=== PATIENT | male | born 1960 | race Caucasian/White ===

== ENCOUNTER 2019-04-29 20:00 | Inpatient (IN) | payer BC ==
[~2019-04-29] VITALS: Ht 175.3 cm; Wt 127.0 kg
[2019-04-29 20:10] VITALS: BP_SYST 169
--- NOTE | 2019-04-29 20:15 | NUR ---
Patient triaged and placed in waiting room. VSS and patient appears in no acute distress at this time. Accompanied by self, awaiting available bed, and MD notified of need for MSE.
--- NOTE | 2019-04-29 20:44 | NUR ---
Patient to ER bed 03 to gown for evaluation. Side rails up. Report given to Jodi LORA.
--- NOTE | 2019-04-29 20:44 | NUR ---
Pt AAOx4 ambulated into ED c/o 5/10 pain to L shoulder r/t L shoulder dislocation s/p falling down stairs at 0930 this morning. Pt was seen at [facility] and given 4mg Morphine IV x 3. IV to R AC still in place from facility. Referred to ED for reduction of shoulder. No other injuries/complaints per pt/noted. Will continue to monitor.
--- NOTE | 2019-04-29 21:00 | NUR ---
Per pt IV still in place from [facility].
[2019-04-29] MEDS ORDERED: LORazepam 2 MG/ML VIAL (FOR ER USE) IVP ONE (21:30)
[2019-04-29] MEDS ORDERED: fentaNYL CITRATE/PF 100 MCG/2 ML AMP IVP ONE (21:30)
--- NOTE | 2019-04-29 21:42 | NUR ---
Pt medicated with IV fentanyl and ativan per MD order. Tolerated well Will cont. to monitor on cardiac and O2 monitor. ER MD made aware.
[2019-04-29] MEDS ORDERED: ETOMIDATE 20 MG/ 10 ML VIAL (AMIDATE) IVP ONE (23:00)
--- NOTE | 2019-04-29 23:50 | NUR ---
Time out done at bedside. Mike Fischer RN, Franko BACA, Salomón RT at bedside.
--- NOTE | 2019-04-29 23:53 | NUR ---
Dr. Joe adminstered 20mg Etomidate IVP. Pt tolerated well.
--- NOTE | 2019-04-30 00:06 | NUR ---
Radiology at bedside for post reduction x ray
--- NOTE | 2019-04-30 00:09 | NUR ---
XR showed unsuccessful reduction. Pt awake and alert. Dr. Joe verbal order of 20mg Etomidate IVP.
[2019-04-30] MEDS ORDERED: ETOMIDATE 20 MG/ 10 ML VIAL (AMIDATE) IVP ONE ×2 (00:15→07:52)
[2019-04-30] MEDS ORDERED: ETOMIDATE 20 MG/ 10 ML VIAL (AMIDATE) ONE (00:22)
--- NOTE | 2019-04-30 00:51 | NUR ---
10mg Etomidate IVP administered. Pt tolerated well. Pt able to countdown from 30. Pt alert and oriented. Dr. Joe administerd second 10mg Etomidate IVP. Pt tolerated well. Resistance noted to IV site. Skin proximal to IV site hard to touch. Signs of infiltration noted. Pt denies pain at IV site.
--- NOTE | 2019-04-30 00:53 | NUR ---
# 20 gauge angiocath placed to R hand. Use of asceptic technique. Opsite placed over site. Blood return noted. Flushed with 10 cc of normal saline. No evidence of infiltration noted. Patient tolerated well.
--- NOTE | 2019-04-30 00:54 | NUR ---
30mg Ketamine IVP administered by Dr. Joe. Pt tolerated well. Pt closing eyes and moderately sedated. Dr. Joe attempted reduction of shoulder. XR ordered.
--- NOTE | 2019-04-30 00:58 | NUR ---
Radiology at bedside for post reduction
--- NOTE | 2019-04-30 00:59 | NUR ---
XR shows unsuccessful reduction of L shoulder. Orders to be received. Pt alert and oriented.
[2019-04-30] MEDS ORDERED: KETAMINE 30 MG/3 ML SYRINGE IVP ONE (01:00)
[2019-04-30] MEDS ORDERED: KETAMINE 30 MG/3 ML SYRINGE ONE (01:05)
[2019-04-30] MEDS ORDERED: MIDAZOLAM HCL 5 MG/5 ML VIAL IVP ONE ×3 (01:15→07:10)
--- NOTE | 2019-04-30 01:30 | NUR ---
3mg Versed IVP administered. Dr. Joe attempted shoulder reduction. Pt c/o pain during procedure. Verbal order of Etomidate 20mg IVP. No etomidate available in pyxis. RSI kit overrode to obtain Etomidate.
--- NOTE | 2019-04-30 01:33 | NUR ---
Etomidate 20mg IVP administered by Dr. Joe. Pt tolerated well. Pt asleep. VSS. Dr. Joe attempted shoulder reduction.
--- NOTE | 2019-04-30 01:42 | NUR ---
Radiology at bedside for post reduction XR. XR shows unsuccessful shoulder reduction. Orders to be received.
--- NOTE | 2019-04-30 01:57 | NUR ---
20mg Etomidate wasted. Versed 3mg to be used as alternative.
--- NOTE | 2019-04-30 02:03 | NUR ---
Versed 3 mg given IVP per MD order. Tolerated well. ER MD at bedside performing shoulder reduction.
--- NOTE | 2019-04-30 02:08 | NUR ---
100 mcg of Fentanyl given IVP per MD order. Tolerated well. Will cont. to monitor.
--- NOTE | 2019-04-30 02:09 | NUR ---
ER MD Dr. Joe performing shoulder reduction with MT, EMT, RN at bedside assisting.
--- NOTE | 2019-04-30 02:10 | NUR ---
ER MD Dr. Joe unable to do shoulder reduction.
[2019-04-30] MEDS ORDERED: fentaNYL CITRATE/PF 100 MCG/2 ML AMP ONE (02:19)
--- NOTE | 2019-04-30 02:19 | NUR ---
PTs Chelita [phone] went home.
[2019-04-30] MEDS ORDERED: fentaNYL CITRATE/PF 100 MCG/2 ML AMP IVP ONE (02:30)
[2019-04-30] MEDS ORDERED: hydrALAZINE HCL 20 MG/ML VIAL IVP ONE (03:00)
[2019-04-30] MEDS ORDERED: NACL 0.9% 1,000 ML IV ONE ×2 (03:00→04:15)
--- NOTE | 2019-04-30 03:20 | NUR ---
Per [place], ER Riveter, the pt's main health plan does not have an solutions delivery consultant CM to contact for admission authorization.
--- NOTE | 2019-04-30 04:00 | NUR ---
Lab at bedside for blood draw.
--- NOTE | 2019-04-30 04:02 | NUR ---
Patient will be admitted to care of Dr. Raines. Admitted to MS unit. Will go to room 124. Belongings list completed. Summary report printed. Report will be given at bedside.
--- NOTE | 2019-04-30 04:07 | NUR ---
lease administration supervisor notified for surgery in AM.
--- NOTE | 2019-04-30 04:08 | NUR ---
Pt reports that his L arm started getting swollen yesterday morning after the fall.
[2019-04-30] MEDS ORDERED: METOCLOPRAMIDE HCL 10 MG/2 ML VIAL IVP ONE (04:15)
[2019-04-30] MEDS ORDERED: hydrALAZINE HCL 20 MG/ML VIAL IVP PRN ×2 (04:15→05:15)
[2019-04-30] MEDS ORDERED: ONDANSETRON HCL 4 MG/2 ML VIAL IVP PRN ×3 (04:15→07:45)
[2019-04-30] MEDS ORDERED: MORPHINE 4 MG/ML INJ. SYRINGE IVP PRN ×2 (04:15→05:15)
--- NOTE | 2019-04-30 04:15 | NUR ---
Pt had one episode of emesis prior to transfer to floor. ER MD made aware.
[2019-04-30 04:22] LABS: MEAN CORPUSCULAR HGB CONC 34 % (32-36); MONOCYTES # (AUTO) 0.6 K/uL (0.0-1.0); MONOCYTES % (AUTO) 6.7 % (1.7-9.3)
[2019-04-30] MEDS ORDERED: METOCLOPRAMIDE HCL 10 MG/2 ML VIAL ONE (04:25)
[2019-04-30 04:26] LABS: BASOPHILS # (AUTO) 0.1 K/uL (0.0-0.2); BASOPHILS % (AUTO) 0.7 % (0.0-2.0); EOSINOPHILS % (AUTO) 0.3 % (0.0-4.0); HEMATOCRIT 47.8 % (36-54); HEMOGLOBIN 16.4 g/dL (14.0-18.0); LYMPHOCYTES # (AUTO) 1.2 K/uL (1.0-5.5); LYMPHOCYTES % (AUTO) 13.7 % (20.5-51.5); MEAN CORPUSCULAR HEMOGLOBIN 32 pg (27-31); MEAN CORPUSCULAR VOLUME 92 fL (79.0-98.0); NEUTROPHILS # (AUTO) 7.2 K/uL (1.8-7.7); NEUTROPHILS % (AUTO) 78.6 % (40.0-70.0); RED BLOOD CELL COUNT(AUTO) 5.19 MIL/uL (4.2-6.2); RED CELL DISTRIBUTION WIDTH 12.9 % (9.0-15.0); WHITE BLOOD COUNT (AUTO) 9.1 K/uL (4.8-10.8)
[2019-04-30 04:28] LABS: PLATELET COUNT (AUTO) 130 K/uL (130-430)
[2019-04-30 04:30] LABS: CALCIUM 8.1 mg/dL (8.4-11.0); CREATININE 0.95 mg/dL (0.55-1.30); POTASSIUM 3.1 mmol/L (3.5-5.1)
[2019-04-30 04:35] LABS: ALBUMIN 3.6 g/dL (3.4-4.8); TOTAL BILIRUBIN 1.1 mg/dL (0.0-1.0)
[2019-04-30] MEDS ORDERED: AMLO5TAB4 PO (04:40)
[2019-04-30] MEDS ORDERED: LOSA50TA3 PO (04:40)
[2019-04-30] MEDS ORDERED: ATEN50TA PO (04:40)
[2019-04-30 05:00] VITALS: BP_SYST 146
--- NOTE | 2019-04-30 05:00 | NUR ---
Transfer to [facility] via ACLS protocol. Licensed nurse present. IV present no signs or symptoms of infiltration.
--- NOTE | 2019-04-30 05:00 | NUR ---
ADMISSION NOTE Received patient from ER via chloe, received report from GUIDO WHITTAKER. Patient admitted with diagnosis of LEFT SHOULDER DISLOCATON. Patient oriented to hospital routine, call light, toileting and safety-patient verbalized understanding.
--- NOTE | 2019-04-30 05:29 | NUR ---
Patient awake alert verbally indicative , LEFT ARM SHOULDER SLING in place mild edema motor movement is noted to fingers & hand with mild pain this hour comfort measures implemented .
--- NOTE | 2019-04-30 05:32 | NUR ---
NPO , patient ALERT & AWARE .
--- NOTE | 2019-04-30 06:07 | NUR ---
CHG BED BATH GIVEN .
--- NOTE | 2019-04-30 06:28 | NUR ---
URINE COLLECTED & SENT TO LAB .
[2019-04-30 07:01] LABS: BILIRUBIN,URINE NEGATIVE (NEGATIVE); BLOOD, URINE NEGATIVE (NEGATIVE); CLARITY/URINE CLEAR (CLEAR); COLOR,URINE YELLOW (YELLOW); GLUCOSE,URINE NEGATIVE (NEGATIVE); KETONES,URINE NEGATIVE (NEGATIVE); LEUKOCYTE ESTERASE ,URINE NEGATIVE (NEGATIVE); NITRITE, URINE NEGATIVE (NEGATIVE); PROTEIN URINE NEGATIVE (NEGATIVE); UROBILINOGEN,URINE 0.2 (0.2-1.0)
[2019-04-30] MEDS ORDERED: SEVOFLURANE 15 MIN GAS INH ONE (07:10)
[2019-04-30] MEDS ORDERED: LR 1,000 ML IV.SOLN IV ONE (07:10)
[2019-04-30] MEDS ORDERED: PROPOFOL 200MG/ 20ML VIAL (DIPRIVAN) IV ONE (07:10)
[2019-04-30] MEDS ORDERED: LABETALOL 100 MG/ 20ML VIAL IVP ONE (07:10)
[2019-04-30] MEDS ORDERED: KETOROLAC TROMETHAMINE 30 MG VIAL IVP PRN (07:45)
[2019-04-30] MEDS ORDERED: fentaNYL CITRATE/PF 100 MCG/2 ML AMP IVP PRN ×2 (07:45)
--- NOTE | 2019-04-30 07:45 | NUR ---
Opening Note Report received from [facility] shift nurse. Patient is currently in OR.
[2019-04-30] MEDS ORDERED: ALBUTEROL SULFATE 0.083% 2.5 MG/3 ML VIAL.NEB INH ONE ×2 (08:00→08:07)
[2019-04-30] MEDS: hydrALAZINE HCL 20 MG/ML VIAL IVP PRN ×2 (08:02→08:17)
[2019-04-30] MEDS ORDERED: hydrALAZINE HCL 20 MG/ML VIAL ONE (08:10)
--- NOTE | 2019-04-30 08:36 | NUR ---
RN Note Patient returned back from OR awake and in stable condition. Left shoulder is in sling. Patient is able to move the fingers in the affected extremity
[2019-04-30 08:38] VITALS: BP_SYST 152
--- NOTE | 2019-04-30 08:57 | NUR ---
ATTENDING MD/ORTHO MD DR HARRIS WAS CALLED RE: LOW K LEVEL. SPOKE TO
[2019-04-30] MEDS ORDERED: HYDR-4274 PO (08:58)
[2019-04-30] MEDS ORDERED: MORPHINE 2 MG/ML INJ. SYRINGE IVP PRN (10:00)
[2019-04-30] MEDS ORDERED: POTASSIUM CHLORIDE 20 MEQ TAB.PRT.SR PO ONE (10:00)
--- NOTE | 2019-04-30 10:35 | NUR ---
Rounds Patient is awake. He is able to move all the fingers on the left hand. Cap refill is less than 3 sec. left radial pulse is palpable.
--- NOTE | 2019-04-30 10:54 | NUR ---
Nutrition Update Lex Scale 17 noted. Pt admitted for L dislocated shoulder. Diet: regular BMI: 41.3 kg/m2 RD to follow per nutrition care standards.
[2019-04-30 12:13] VITALS: BP_SYST 148
[2019-04-30 12:14] VITALS: BP_SYST 148
--- NOTE | 2019-04-30 12:41 | NUR ---
Rounds Patient was able to void. Has no c/o pain.
--- NOTE | 2019-04-30 13:05 | NUR ---
Transition of Care Patient given medication reconciliation form and D/C instructions. Exit Care provided. Patient verbalized understanding. MD discussed with patient the results and treatment provided. Ambulatory with steady gait for discharge to home. Patient in stable condition, ID band removed. IV catheter removed, intact and dressing applied, no active bleeding. Rx of Floral given. Patient educated on pain management. All belongings sent with patient.
== END 2019-04-30 13:00 | disposition home or self-care (01) | DRG 563 ==
LOC: SED 20:00 → SMU 04-30 05:28
PROVIDERS: ADMIT Orthopaedic Surgery; ATTEND Orthopaedic Surgery
PROC: 0RSKXZZ Reposition Left Shoulder Joint, External Approach (ICD-10-PCS; 2019-04-30)
PROC: 0RSKXZZ Reposition Left Shoulder Joint, External Approach (ICD-10-PCS; principal; 2019-04-30 07:05)
DX: S43.005A Unspecified dislocation of left shoulder joint, initial encounter (principal); I10 Essential (primary) hypertension; E87.6 Hypokalemia; R74.0 Nonspecific elevation of levels of transaminase and lactic acid dehydrogenase [LDH]; W10.8XXA Fall (on) (from) other stairs and steps, initial encounter; Y93.89 Activity, other specified; Y92.098 Other place in other non-institutional residence as the place of occurrence of the external cause; Y99.8 Other external cause status
CPT/HCPCS: 36415; 71045; 73030; 76000; 80053; 81003; 85025; 87081; 93005; 94640; 96361; 96374; 96375; 99285; J0360; J2060; J2250; J2704; J2765; J3010; J3490; J7030; J7120; J7613

== ENCOUNTER 2019-05-05 14:07 | Emergency (ER) | payer BC ==
[~2019-05-05] VITALS: Ht 180.3 cm; Wt 111.1 kg
[~2019-05-05 14:07] MED LIST: AMLO5TAB4 PO; ATEN50TA PO; HYDR-4274 PO; LOSA50TA3 PO
--- NOTE | 2019-05-05 14:15 | NUR ---
Patient to ER bed 5 to gown for evaluation. Side rails up.
--- NOTE | 2019-05-05 14:20 | NUR ---
ER at bedside examining patient.
--- NOTE | 2019-05-05 14:25 | NUR ---
PT was in ER are previously to place back his dislocated shoulder. PT advised that his shoulder popped out of place and now very painful at the joint 07/05. PT is not presenting any signs of acute distress.
[2019-05-05 14:42] VITALS: BP_SYST 130
[2019-05-05] MEDS ORDERED: MORPHINE SULFATE 10 MG/ML VIAL IM ONE (15:00)
[2019-05-05] MEDS ORDERED: ONDANSETRON 4 MG ODT TAB PO ONE (15:00)
--- NOTE | 2019-05-05 15:00 | NUR ---
PT transferred to bed 1 for reduction procedure of shoulder.
[2019-05-05] MEDS ORDERED: ED NON STOCK ORDER 1 EA MISC IV ONE (15:15)
[2019-05-05] MEDS ORDERED: MIDAZOLAM HCL 5 MG/5 ML VIAL IVP ONE (15:15)
[2019-05-05] MEDS ORDERED: KETAMINE HCL 500 MG/10 ML VIAL ONE (15:34)
--- NOTE | 2019-05-05 15:55 | NUR ---
PT started procedure at 1538 and was given Ketamine and Midazolam for sadation. PT shoulder placed back in joint but during recovery PT O2 stats fell to 62%. RT, MD, and RN at bedside. Artificial airway placed and flumazenil given to patient x2 0.2 mg. PT recovered and has been at 96% or greater post recovery. PT awoke at 1555.
[2019-05-05] MEDS ORDERED: FLUMAZENIL 0.1 MG/ML IVP ONE ×3 (15:57→16:15)
--- NOTE | 2019-05-05 16:07 | NUR ---
CONSIOUS SEDATION AT BEDSIDE. PT DESAT TO 70'S AND DID NOT READ SPO2. STARTED BAG THE PT VIA MASK/AMBUBAG WITH 100% O2. PT SPO2 INCREASED TO SP02 90%. CHANGED TO NC. SPO2 99%, HR 96.
[2019-05-05] MEDS ORDERED: cloNIDine HCL 0.1 MG TABLET PO ONE (16:30)
--- NOTE | 2019-05-05 17:00 | NUR ---
Patient resting quietly with at bedside. No acute distress noted. Vital signs within normal range from baseline. PT given 0.3 catapres for high BP.
[2019-05-05 17:19] VITALS: BP_SYST 217
== END 2019-05-05 17:15 | disposition home or self-care (01) ==
LOC: SED 14:07
DX: S43.005A Unspecified dislocation of left shoulder joint, initial encounter (principal); I10 Essential (primary) hypertension; Z79.899 Other long term (current) drug therapy; X58.XXXA Exposure to other specified factors, initial encounter; Y93.89 Activity, other specified; Y92.89 Other specified places as the place of occurrence of the external cause; Y99.8 Other external cause status
CPT/HCPCS: 23650; 73020; 73030; 96372; 99152; 99285; J2250; J2270; J3490; J7030; Q0162

== ENCOUNTER 2022-04-01 17:41 | Day surgery (SDC) | payer BC ==
[~2022-04-01] VITALS: Ht 177.8 cm; Wt 122.5 kg
[2022-04-01 18:05] VITALS: BP_SYST 166
[2022-04-01] MEDS ORDERED: NACL 0.9% 1,000 ML IV ONE (19:45)
[2022-04-01] MEDS ORDERED: POTASSIUM CHLORIDE 20 MEQ in D5/0.45 NS 1,000 ML IV SCH (20:00)
[2022-04-01] MEDS ORDERED: HYDROmorphone 1 MG/ML INJ. CARTRIDGE IVP PRN (20:15)
[2022-04-01] MEDS ORDERED: LR 1,000 ML IV.SOLN IV ONE (20:50)
[2022-04-01] MEDS ORDERED: SEVOFLURANE 15 MIN GAS INH ONE (20:50)
[2022-04-01] MEDS ORDERED: PROPOFOL 200MG/ 20ML VIAL (DIPRIVAN) IV ONE (20:50)
[2022-04-01 22:23] VITALS: BP_SYST 118
== END 2022-04-01 20:55 | disposition home or self-care (01) ==
LOC: SED 17:41 → SMU 19:59 → UNDOADMIN 19:59 → SMU 20:33 → SDS 20:54 → UNDODISIN 22:55
PROVIDERS: ATTEND Orthopaedic Surgery
DX: S43.005A Unspecified dislocation of left shoulder joint, initial encounter (principal); I10 Essential (primary) hypertension; X58.XXXA Exposure to other specified factors, initial encounter; Y93.89 Activity, other specified; Y92.89 Other specified places as the place of occurrence of the external cause; Y99.8 Other external cause status
CPT/HCPCS: 23650; 73030; J2704; J7120; L3650; J3480